=== PATIENT | male | born 1995 | race Caucasian/White ===

== ENCOUNTER 2021-11-05 13:27 | Emergency (ER) | payer OTHER ==
[~2021-11-05] VITALS: Ht 170.2 cm; Wt 63.5 kg
--- NOTE | 2021-11-05 13:47 | NUR ---
PT EVALUATED BY DR WORTHY. TO RADIOLOGY VIA WC.
[2021-11-05 16:26] LABS: HEMATOCRIT 46.2 % (36.7-47.1); MEAN CORPUSCULAR HEMOGLOBIN 32.1 uug (23.8-33.4); MEAN CORPUSCULAR VOLUME 89.8 fL (73.0-96.2); PLATELET COUNT (AUTO) 222 K/uL (152-348)
[2021-11-05 16:28] LABS: CARBON DIOXIDE 29 mmol/L (21-32); CHLORIDE 102 mmol/L (98-107); GLUCOSE 93 mg/dL (74-106); POTASSIUM 3.7 mmol/L (3.5-5.1); UREA NITROGEN, BLOOD 14 mg/dL (7-18)
[2021-11-05 16:33] LABS: ALANINE AMINOTRANSFERASE 23 U/L (16-63); ALKALINE PHOSPHATASE 74 U/L (50-136); ASPARTATE AMINOTRANSFERASE 23 U/L (15-37); BILIRUBIN,DIRECT < 0.1 mg/dL (0.0-0.2); BILIRUBIN,TOTAL 0.4 mg/dL (0.2-1.0); TOTAL PROTEIN, SERUM 8.3 g/dL (6.4-8.2)
[2021-11-05] MEDS ORDERED: MIDAZOLAM HCL 2 MG/2 ML VIAL ONE (16:59)
--- NOTE | 2021-11-05 18:01 | NUR ---
PT WAS EVALUATED BY DR WORTHY. PT WAS TAKEN TO SURGERY DEPARTMENT FOR ENDOSCOPY .
[2021-11-05] MEDS ORDERED: LIDOCAINE-MPF 2% 5 ML VIAL ONE (18:52)
[2021-11-05] MEDS ORDERED: SUCCINYLCHOLINE CHLORIDE 200 MG/10 ML VIAL ONE (18:52)
[2021-11-05] MEDS ORDERED: PROPOFOL 200 MG/20 ML BOTTLE ONE (18:52)
--- NOTE | 2021-11-05 19:33 | NUR ---
PT CAME BACK FROM RECOVERY ROOM AFTER ENDOSCOPIC PROCEDURE WAS DONE BY DR CADET. PT TOLERATED TO PROCEDURE WITHOUT COMPLICATIONS, PT IS FULLY AWAKE, CAN SPEAK IN FULL SENTENCES, NO SOB, NO S/S OF BLEEDING, PT DENIES PAIN, PT CAN MOVE WITH ALL FOUR EXTREMITIES WITHOUT LIMITATIONS. GAIT IS STABLE, NO DIZZINESS. DR WORTHY RE-EVALUATED THE PT. PT WAS D/C'd TO HOME. D/C INSTRUCTIONS GIVEN TO THE PT BY DR WORTHY AND DR CADET.
[2021-11-05 19:37] VITALS: BP 131/62
== END 2021-11-05 19:38 | disposition home or self-care (01) ==
LOC: ER 13:27
DX: T18.2XXA Foreign body in stomach, initial encounter (principal); X58.XXXA Exposure to other specified factors, initial encounter; Y93.89 Activity, other specified; Y92.89 Other specified places as the place of occurrence of the external cause; Y99.0 Civilian activity done for income or pay; Z20.822 Contact with and (suspected) exposure to COVID-19
CPT/HCPCS: 36415; 43247; 71045; 74018; 80048; 80076; 85025; 87426; 93005; 99285; J2250; A4217; A4663; J0330; J3490; J7030